=== PATIENT | female | born 1935 | race Caucasian/White ===

== ENCOUNTER 2016-10-13 10:22 | Emergency (ER) | payer MEDICARE ==
[~2016-10-13] VITALS: Ht 149.9 cm; Wt 52.2 kg
[2016-10-13 10:22] VITALS: BP_SYST 143
--- NOTE | 2016-10-13 10:22 | NUR ---
BROUGHT IN BY [facility], PLACED IN BED #3, REPORT GIVEN TO MAGDALENA
--- NOTE | 2016-10-13 10:22 | NUR ---
Pt report received from BLANCA Bellamy. Pt c/o throat irritation after cleaning with bleach today. Airway patent, respirations even and non-labored, BBS clear.
[2016-10-13] MEDS ORDERED: DIPHENHYDRAMINE HCL 12.5 MG/5 ML UDC PO ONE (10:45)
--- NOTE | 2016-10-13 10:45 | NUR ---
Dr. Sutherland at bedside to assess pt.
[2016-10-13 12:00] VITALS: BP_SYST 133
--- NOTE | 2016-10-13 12:00 | NUR ---
Patient given written and verbal discharge instructions and verbalizes understanding. ER MD discussed with patient the results and treatment provided. Patient in stable condition. ID arm band removed. No Rx given. Patient educated on pain management and to follow up with PMD. Pain Scale 0/10. Opportunity for questions provided and answered.
--- NOTE | 2016-10-13 12:00 | NUR ---
Note undone in EDM - 10/13/16 at 1739 by JUDY Patient to be transferred to [facility]. Is being transferred due to higher level of care. Receiving facility has accepting physician and available space. ER physician has signed transfer form. Patient or responsible republican has agreed to transfer and signed form. Patient belongings inventoried and will be sent with patient. Copy of nursing notes, lab reports, EKG, Physicians Orders and X-rays to be sent with patient. Report called to BLANCA Chaves at receiving facility. Receiving physician is Dr. Costa. Pt leaves via stretcher in c/o ALS transport.
== END 2016-10-13 12:00 | disposition home or self-care (01) ==
LOC: SED 10:22
DX: T59.891A Toxic effect of other specified gases, fumes and vapors, accidental (unintentional), initial encounter (principal); I10 Essential (primary) hypertension; Z85.3 Personal history of malignant neoplasm of breast; Z90.710 Acquired absence of both cervix and uterus; Z90.10 Acquired absence of unspecified breast and nipple; Y92.89 Other specified places as the place of occurrence of the external cause
CPT/HCPCS: 71020-TC; 99284